=== PATIENT | female | born 1965 | race Caucasian/White ===

== ENCOUNTER 2016-11-24 17:08 | Emergency (ER) | payer OTHER ==
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
--- NOTE | 2016-11-24 19:02 | ED ORDER SUMMARY ---
..... Patient: KARON NORRIS OrderSheet [facility] VisitID: [id number] [address] [place] [address] 51y, F Registration Date/Time: 11/24/2016 ORDER SHEET Weight: 74.8 kg (estimated) Allergies: Novacaine , Epinephrine, Ibuprofen GENERAL ORDERS: Chest 1V Urgent (17:11/24/2016 EKoroleva P.A.-C) (Ack 17:57 LTapper) (18:14 SRoberts R.N.) Tracer Bullet Charging Machine Operator (Continuous) (17:11/24/2016 EKoroleva P.A.-C) (18:14 SRoberts R.N.) CT Head wo Cont Urgent (17:11/24/2016 EKoroleva P.A.-C) (Ack 17:57 LTapper) (18:14 SRoberts R.N.) CT Cervical Spine wo Cont Urgent (17:11/24/2016 EKoroleva P.A.-C) (Ack 17:57 LTapper) (18:14 SRoberts R.N.) Thoracic Spine 2V Urgent (17:11/24/2016 EKoroleva P.A.-C) (Ack 17:57 LTapper) (18:14 SRoberts R.N.) Wrist 3 or 4V Right Urgent (17:11/24/2016 EKoroleva P.A.-C) (Ack 17:57 LTapper) (18:14 SRoberts R.N.) Hand 3 or 4V Right Urgent (17:11/24/2016 EKoroleva P.A.-C) (Ack 17:57 LTapper) (18:14 SRoberts R.N.) CBC w Diff Urgent (17:11/24/2016 EKoroleva P.A.-C) (Ack 17:57 LTapper) (18:14 SRoberts R.N.) CMP Urgent (17:11/24/2016 EKoroleva P.A.-C) (Ack 17:57 LTapper) (18:14 SRoberts R.N.) PT with INR Urgent (17:26 11/24/2016 EKoroleva P.A.-C) (Ack 17:57 LTapper) (18:14 SRoberts R.N.) PTT Urgent (17:26 11/24/2016 EKoroleva P.A.-C) (Ack 17:57 LTapper) (18:14 SRoberts R.N.) Shoulder 2V or more Right Urgent (17:42 11/24/2016 EKoroleva P.A.-C) (Ack 17:57 LTapper) (18:14 SRoberts R.N.) MEDICATION ORDERS: Tdap IM 0.5 mL (NOW, per protocol) (17:26 11/24/2016 EKoroleva P.A.-C) (17:42 Lakhwinder R.N.) Tylenol PO 650 mg (NOW) (18:50 11/24/2016 EKoroleva P.A.-C) (Ack 19:09 SRoberts R.N.) (19:29 SRoberts R.N.) IV FLUIDS: IV Saline Lock (17:28 11/24/2016 EKoroleva P.A.-C) (17:38 SRoberts R.N.) ORDER SHEET NOTES: [Electronically signed by Victorina Wilkins R.N. (21:32 11/24/2016)] [Electronically signed by Jayashree Garrett PBobbyABobby-C (23:53 11/24/2016)] [Electronically locked/signed by Victorina Wilkins R.N. (21:32 11/24/2016)]
--- NOTE | 2016-11-24 19:02 | ED ORDER SUMMARY ---
..... Patient: KARON NORRIS OrderSheet [facility] VisitID: [id number] [address] [place] [address] 51y, F Registration Date/Time: 11/24/2016 ORDER SHEET Weight: 74.8 kg (estimated) Allergies: Novacaine , Epinephrine, Ibuprofen GENERAL ORDERS: Chest 1V Urgent (17:11/24/2016 EKoroleva P.A.-C) (Ack 17:57 LTapper) (18:14 SRoberts R.N.) Rug Underlay Machine Operator (Continuous) (17:11/24/2016 EKoroleva P.A.-C) (18:14 SRoberts R.N.) CT Head wo Cont Urgent (17:11/24/2016 EKoroleva P.A.-C) (Ack 17:57 LTapper) (18:14 SRoberts R.N.) CT Cervical Spine wo Cont Urgent (17:11/24/2016 EKoroleva P.A.-C) (Ack 17:57 LTapper) (18:14 SRoberts R.N.) Thoracic Spine 2V Urgent (17:11/24/2016 EKoroleva P.A.-C) (Ack 17:57 LTapper) (18:14 SRoberts R.N.) Wrist 3 or 4V Right Urgent (17:11/24/2016 EKoroleva P.A.-C) (Ack 17:57 LTapper) (18:14 SRoberts R.N.) Hand 3 or 4V Right Urgent (17:11/24/2016 EKoroleva P.A.-C) (Ack 17:57 LTapper) (18:14 SRoberts R.N.) CBC w Diff Urgent (17:11/24/2016 EKoroleva P.A.-C) (Ack 17:57 LTapper) (18:14 SRoberts R.N.) CMP Urgent (17:11/24/2016 EKoroleva P.A.-C) (Ack 17:57 LTapper) (18:14 SRoberts R.N.) PT with INR Urgent (17:26 11/24/2016 EKoroleva P.A.-C) (Ack 17:57 LTapper) (18:14 SRoberts R.N.) PTT Urgent (17:26 11/24/2016 EKoroleva P.A.-C) (Ack 17:57 LTapper) (18:14 SRoberts R.N.) Shoulder 2V or more Right Urgent (17:42 11/24/2016 EKoroleva P.A.-C) (Ack 17:57 LTapper) (18:14 SRoberts R.N.) MEDICATION ORDERS: Tdap IM 0.5 mL (NOW, per protocol) (17:26 11/24/2016 EKoroleva P.A.-C) (17:42 Lakhwinder R.N.) Tylenol PO 650 mg (NOW) (18:50 11/24/2016 EKoroleva P.A.-C) (Ack 19:09 SRoberts R.N.) (19:29 SRoberts R.N.) IV FLUIDS: IV Saline Lock (17:28 11/24/2016 EKoroleva P.A.-C) (17:38 SRoberts R.N.) ORDER SHEET NOTES: [Electronically signed by Victorina Wilkins R.N. (21:32 11/24/2016)] [Electronically signed by Jayashree Garrett PBobbyABobby-C (23:53 11/24/2016)] [Electronically locked/signed by Victorina Wilkins R.N. (21:32 11/24/2016)]
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
--- NOTE | 2016-11-24 23:53 | ED MED RECONCILIATION SUMMARY ---
Patient: KARON NORRIS Medication Reconciliation Report [facility] VisitID: [id number] [address] [place] [address] 51y, F Registration Date/Time: 11/24/2016 Weight: 74.8 kg Height/Length: 66 in. BMI: 26.6 ALLERGIES: Epinephrine, Ibuprofen, Novacaine The patient's Home Medications are listed below: NONE. The source(s) of the original Home Medication information: patient The following Medications were given to the patient in the Emergency Department: TDAP [IM] IM 0.5 mL, administered: 11/24/2016 5:42:00 PM Tylenol [PO] PO 650 mg, administered: 11/24/2016 7:29:00 PM The following Medications were prescribed to the patient: Acetaminophen (available over the counter): take according to label instructions. -- Jayashree Garrett, PBobbyALeydaC
--- NOTE | 2016-11-24 23:53 | ED MAR SUMMARY ---
..... Medication Administration Record [facility] [address] [place] [address] Patient: KARON NORRIS Visit ID: [id number] 51y, F Weight: 74.8 kg Height/Length: 66 in BMI: 26.6 ALLERGIES: Ibuprofen, Epinephrine, Novacaine Given 17:42 11/24/2016 Kate Mccarthy RBobbyN. Medication Administered: TDAP [IM], Dose: 0.5 mL IM. Medication Ordered: Tdap IM 0.5 mL (NOW, per protocol). Given 19:29 11/24/2016 Victorina Wilkins RSherly Medication Administered: TYLENOL [PO] (ACETAMINOPHEN), Dose: 650 mg PO. Medication Ordered: Tylenol PO 650 mg (NOW).
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
--- NOTE | 2016-11-24 23:53 | ED MED RECONCILIATION SUMMARY ---
Patient: KARON NORRIS Medication Reconciliation Report [facility] VisitID: [id number] [address] [place] [address] 51y, F Registration Date/Time: 11/24/2016 Weight: 74.8 kg Height/Length: 66 in. BMI: 26.6 ALLERGIES: Epinephrine, Ibuprofen, Novacaine The patient's Home Medications are listed below: NONE. The source(s) of the original Home Medication information: patient The following Medications were given to the patient in the Emergency Department: TDAP [IM] IM 0.5 mL, administered: 11/24/2016 5:42:00 PM Tylenol [PO] PO 650 mg, administered: 11/24/2016 7:29:00 PM The following Medications were prescribed to the patient: Acetaminophen (available over the counter): take according to label instructions. -- Jayashree Garrett, PBobbyALeydaC
--- NOTE | 2016-11-24 23:53 | ED MAR SUMMARY ---
..... Medication Administration Record [facility] [address] [place] [address] Patient: KARON NORRIS Visit ID: [id number] 51y, F Weight: 74.8 kg Height/Length: 66 in BMI: 26.6 ALLERGIES: Ibuprofen, Epinephrine, Novacaine Given 17:42 11/24/2016 Kate Mccarthy RBobbyN. Medication Administered: TDAP [IM], Dose: 0.5 mL IM. Medication Ordered: Tdap IM 0.5 mL (NOW, per protocol). Given 19:29 11/24/2016 Victorina Wilkins RSherly Medication Administered: TYLENOL [PO] (ACETAMINOPHEN), Dose: 650 mg PO. Medication Ordered: Tylenol PO 650 mg (NOW).
== END 2016-11-24 19:20 | disposition home or self-care (01) ==
LOC: EKG SRH 17:08 → ED SRH 17:09
DX: S16.1XXA Strain of muscle, fascia and tendon at neck level, initial encounter (principal); S20.219A Contusion of unspecified front wall of thorax, initial encounter; S40.011A Contusion of right shoulder, initial encounter; S60.211A Contusion of right wrist, initial encounter; S60.221A Contusion of right hand, initial encounter; V43.53XA Car driver injured in collision with pick-up truck in traffic accident, initial encounter; Y93.I9 Activity, other involving external motion; Y92.410 Unspecified street and highway as the place of occurrence of the external cause; Z88.6 Allergy status to analgesic agent; Y99.9 Unspecified external cause status

== ENCOUNTER 2016-12-07 11:57 | Outpatient (CLI) | payer OTHER ==
--- NOTE | 2016-12-07 12:24 | DIAGNOSTIC IMAGING REPORT ---
PROCEDURE: XR HAND 3 OR 4 VIEWS - RIGHT INDICATION: HAND PX,RIGHT TECHNIQUE: Four views. COMPARISON: None. FINDINGS: Osseous structures and joint spaces are normal. IMPRESSION: 1. Normal right hand.
== END 2016-12-07 23:00 ==
LOC: XR SRH 11:57
DX: M79.641 Pain in right hand (principal)

== ENCOUNTER 2016-12-29 10:35 | Outpatient (CLI) | payer OTHER ==
--- NOTE | 2016-12-30 09:56 | DIAGNOSTIC IMAGING REPORT ---
PROCEDURE: MR UPPER EXTREMITY W/O CONT-RT INDICATION: RT WRIST PAIN TECHNIQUE: Axial and sagittal proton density and proton density fat sat, axial and coronal STIR, coronal proton density, and coronal gradient echo sequences through the right wrist. COMPARISON: Plain films 12/07/2016, and 11/24/2016. FINDINGS: Osseous structures and articular surfaces: Normal bony alignment. Normal marrow signal without edema. Cartilage surfaces are normally maintained. No significant degenerative spurring or subcortical cystic changes. Ligaments: Scapholunate and lunotriquetral intrinsic ligament regions appear normal. Extrinsic ligaments are intact. Dorsal and volar radioulnar ligaments are intact. There is irregularity and mild adjacent edema involving the ulnar collateral ligament of the wrist at the pre styloid recess. Tendons: Mild intrinsic intermediate signal involving the extensor carpi ulnaris tendon at, and just distal to the level of the radiocarpal articulation, just distal to the ulnar styloid. Distal to the triquetrum, it appears mildly attenuated with trace surrounding edema. No tenosynovitis. Other extensor and flexor tendons appear normal in signal, thickness, and position. Soft tissues: There is a small amount of edema in the soft tissues just distal and volar to the ulnar styloid. Visible musculature and subcutaneous tissues are otherwise normal. Contents of the carpal tunnel including median nerve and retinacular fibers are normal. The ulnar neurovascular bundle is also normal. Triangular fibrocartilage: Intact however there is a small amount of fluid distal to the cartilage of the pre styloid recess. IMPRESSION: 1. Mild tendinopathy and probably chronic partial tearing of the distal extensor carpi ulnaris tendon. 2. Irregularity involving the ulnar collateral ligament distal to the triangular fibrocartilage with adjacent fluid suggestive of ligament strain without full-thickness tear. 3. Triangulofibrocartilage intact.
== END 2016-12-29 23:00 | disposition home or self-care (01) ==
LOC: MRI SRH 10:35
DX: S66.811A Strain of other specified muscles, fascia and tendons at wrist and hand level, right hand, initial encounter (principal)